=== PATIENT | female | born 2000 ===

== ENCOUNTER 2021-01-27 02:00 | Emergency (ER) | payer MEDICAID ==
[2021-01-27] MEDS ORDERED: Ketorolac 30 MG/ML SDV IM ONE (02:13)
--- NOTE | 2021-01-27 02:14 | EDM.PDOC ---
ED HPI GENERAL MEDICAL PROBLEM - General Chief Complaint: Lower Extremity Injury/Pain Stated Complaint: Left 2nd Toe Pain Time Seen by Provider: 01/27/21 02:08 Source of Information: Reports: Patient History Limitations: Reports: No Limitations - History of Present Illness INITIAL COMMENTS - FREE TEXT/NARRATIVE: Patient dropped a cement brick on her left 2nd toe about 3 hours ago. States that it hurts. Has not tried any OTC medications. Did try to ice it earlier. Complains of toe swelling, bruising, small cut to top aspect of toe. Onset: Today Duration: Getting Worse Location: Reports: Lower Extremity, Left Quality: Reports: Sharp Severity: Moderate Improves with: Reports: None Worsens with: Reports: Movement Associated Symptoms: Reports: No Other Symptoms Treatments RESHIPPING CLERK: Reports: Cold Therapy, Other (see below) (ice) Review of Systems - Review of Systems Review Of Systems: See Below Constitutional: Reports: No Symptoms Eyes: Reports: No Symptoms Ears: Reports: No Symptoms Nose: Reports: No Symptoms Mouth/Throat: Reports: No Symptoms Respiratory: Reports: No Symptoms Cardiovascular: Reports: No Symptoms GI/Abdominal: Reports: No Symptoms Genitourinary: Reports: No Symptoms Musculoskeletal: Reports: Foot Pain (left 2nd toe) Skin: Reports: No Symptoms Neurological: Reports: No Symptoms Psychiatric: Reports: No Symptoms ED EXAM, GENERAL - Physical Exam Exam: See Below Exam Limited By: No Limitations General Appearance: Alert, WD/WN, No Apparent Distress Eye Exam: Bilateral Eye: EOMI Peripheral Pulses: 2+: Posterior Tibial (L), Posterior Tibial (R), Dorsalis Pedis (L), Dorsalis Pedis (R) Extremities: No Pedal Edema, Normal Capillary Refill, Other (left second toe has ecchymosis, edema, dried small laceration not deep or wide enough to suture) Neurological: Alert, Oriented, CN II-XII Intact, Normal Cognition, Normal Gait, Normal Reflexes, No Motor/Sensory Deficits Psychiatric: Normal Affect, Normal Mood Skin Exam: Warm, Dry, Intact, Ecchymosis (left 2nd toe) Lymphatic: No Adenopathy Course - Orders/Labs/Meds Orders: Active Orders 24 hr Category Date Time Status Foot Comp Min 3V Lt [CR] Stat Exams 01/27/21 02:13 Taken Meds: Medications Discontinued Medications Generic Name Dose Route Start Last Admin Trade Name Freq PRN Reason Stop Dose Admin Ketorolac Tromethamine 30 mg 01/27/21 02:13 Ketorolac 30 Mg/Ml Sdv IM 01/27/21 02:14 ONETIME ONE Departure - Departure Time of Disposition: 03:15 Disposition: Home, Self-Care 01 Condition: Good Clinical Impression: Toe contusion Qualifiers: Encounter type: initial encounter Toe: lesser toe Damage to nail status: without damage Laterality: left Qualified Code(s): S90.122A - Contusion of left lesser toe(s) without damage to nail, initial encounter - Discharge Information *PRESCRIPTION DRUG MONITORING PROGRAM REVIEWED*: Not Applicable *COPY OF PRESCRIPTION DRUG MONITORING REPORT IN PATIENT JOZEF: Not Applicable Instructions: Foot Contusion, [id number] Forms: ED Department Discharge Additional Instructions: 1. No acute fracture identified 2. Stay well hydrated 3. Rest, elevate, ice your foot 4. Follow up with your regular doctor if not improving in 3-5 days - Problem List & Annotations (1) Toe contusion SNOMED Code(s): 56254012 Code(s): S90.129A - CONTUSION OF UNSP LESSER TOE(S) W/O DAMAGE TO NAIL, INIT Status: Acute Priority: Low Qualifiers: Encounter type: initial encounter Toe: lesser toe Damage to nail status: without damage Laterality: left Qualified Code(s): S90.122A - Contusion of left lesser toe(s) without damage to nail, initial encounter - Problem List Review Problem List Initiated/Reviewed/Updated: Yes - My Orders Last 24 Hours: My Active Orders 01/27/21 02:13 Foot Comp Min 3V Lt [CR] Stat - Assessment/Plan Last 24 Hours: My Active Orders 01/27/21 02:13 Foot Comp Min 3V Lt [CR] Stat Assessment:: toe contusion Plan: 1. No acute fracture identified 2. Stay well hydrated 3. Rest, elevate, ice your foot 4. Follow up with your regular doctor if not improving in 3-5 days
--- NOTE | 2021-01-27 08:58 | CR ---
[id number] RAD/RAD Foot Left 3V Min Exam: RAD Foot Left 3V Min Indication:INJURY Comparison: No prior imaging for comparison. Discussion/Impression: No acute fracture, AVN, or erosive changes. Joint spaces are well-preserved. Bone mineralization is normal. Slight valgus angulation of the 1st MTP articulation with lateral subluxation of the hallux sesamoids. Adam Murphy MD 01/27/21 0857 Thank you for allowing us to participate in the care of your patient.
== END 2021-01-27 03:15 | disposition home or self-care (01) ==
LOC: SUPCPDRO 02:00 → VM.ED 02:00
DX: S90.122A Contusion of left lesser toe(s) without damage to nail, initial encounter (principal); W20.8XXA Other cause of strike by thrown, projected or falling object, initial encounter
CPT/HCPCS: 73630-LT; 99283

== ENCOUNTER 2021-03-21 19:42 | Emergency (ER) | payer MEDICAID ==
--- NOTE | 2021-03-21 20:46 | EDM.PDOC ---
ED HPI GENERAL MEDICAL PROBLEM - General Chief Complaint: Back Pain or Injury Stated Complaint: PAINS Time Seen by Provider: 03/21/21 20:10 Source of Information: Reports: Patient History Limitations: Reports: No Limitations - History of Present Illness INITIAL COMMENTS - FREE TEXT/NARRATIVE: Lani is a 21 year old female who presents to ER with complaints of right lower back pain. States feels like back labor. Had a small period in February but only required one pad at that time. Has taken multiple tests at home, some have been positive, some negative. Last routine menses is unknown. She does admit to lifting heavy totes with rocks in them today but doesn't recall a specific event that caused pain. Pain waxes and wanes. No abdominal pain, no nausea or vomiting. Denies fever. No burning with urination, does have some hesitancy. Onset: Today, Gradual Duration: Hour(s): Location: Reports: Back Quality: Reports: Ache Severity: Moderate Associated Symptoms: Denies: Confusion, Chest Pain, Cough, Fever/Chills, Loss of Appetite, Nausea/Vomiting, Shortness of Breath - Related Data Allergies Allergy/AdvReac Type Severity Reaction Status Date / Time ketorolac [From Toradol] Allergy Itching Verified 03/21/21 20:42 morphine Allergy Itching Verified 03/21/21 20:42 Home Meds: Home Meds . [No Known Home Meds] 01/27/21 [History] Past Medical History Psychiatric History: Reports: Anxiety Social & Family History - Tobacco Use Tobacco Use Status *Q: Current Every Day Tobacco User - Alcohol Use Alcohol Use History: Yes - Recreational Drug Use Recreational Drug Type: Reports: Marijuana/Hashish ED ROS GENERAL - Review of Systems Review Of Systems: See Below Constitutional: Denies: Fever, Chills, Malaise, Weakness, Decreased Appetite HEENT: Reports: No Symptoms Respiratory: Denies: Shortness of Breath Cardiovascular: Denies: Chest Pain, Edema, Lightheadedness Endocrine: Denies: Fatigue GI/Abdominal: Denies: Abdominal Pain, Nausea, Vomiting : Reports: No Symptoms Musculoskeletal: Reports: Back Pain Skin: Reports: No Symptoms Neurological: Reports: No Symptoms ED EXAM,LOWER BACK PAIN/INJURY - Physical Exam Exam: See Below Exam Limited By: No Limitations General Appearance: Alert, WD/WN, No Apparent Distress Ears: Normal External Exam, Normal TMs Nose: Normal Inspection, Normal Mucosa, No Blood Throat/Mouth: Normal Inspection, Normal Oropharynx Head: Normocephalic Neck: Normal Inspection, Supple, Non-Tender Respiratory/Chest: No Respiratory Distress, Lungs Clear Cardiovascular: Regular Rate, Rhythm GI/Abdominal: Normal Bowel Sounds, Soft, Non-Tender (Female) Exam: Normal External Exam, Other (unable to appreciate any fundal height, no heart tones. Vaginal exam without any blood, cervix is closed.). No: Cervical Discharge, Vaginal Bleeding Extremities: Normal Inspection, No Pedal Edema Neurological: Alert, Normal Mood/Affect Psychiatric: Normal Affect Skin Exam: Warm, Dry Course - Orders/Labs/Meds Labs: Laboratory Tests 03/21/21 03/21/21 Range/Units 20:30 20:30 Urine Color Dark yellow H (YELLOW) Urine Appearance Slightly cloudy H (CLEAR) Urine pH 6.0 (5.0-8.0) Ur Specific [place] >=1.030 Urine Protein 30 H (NEGATIVE) mg/dL Urine Glucose (UA) Negative (NEGATIVE) mg/dL Urine Ketones Trace H (NEGATIVE) mg/dL Urine Occult Blood Negative (NEGATIVE) Urine Nitrite Negative (NEGATIVE) Urine Bilirubin Small H (NEGATIVE) Urine Urobilinogen 1.0 (0.2) EU/dL Ur Leukocyte Esterase Negative (NEGATIVE) Urine HCG, Qual Positive H (NEGATIVE) - Re-Assessments/Exams Free Text/Narrative Re-Assessment/Exam: 03/21/21 21:06 UA negative. Urine is positive. Unable to verify dates as had only spotting in February which would place her at 2 weeks gestation but does not recall prior menses date before that. Will need to follow up with Dr. Wolff tomorrow for ultrasound. Take tylenol for the back discomfort. Departure - Departure Time of Disposition: 21:08 Disposition: Home, Self-Care 01 Condition: Good Clinical Impression: Back pain, - Discharge Information *PRESCRIPTION DRUG MONITORING PROGRAM REVIEWED*: No *COPY OF PRESCRIPTION DRUG MONITORING REPORT IN PATIENT JOZEF: No Instructions: Acute Back Pain, Adult Referrals: Don Wolff MD [Primary Care Provider] - Forms: ED Department Discharge Additional Instructions: 1. Rest 2. Push fluids 3. Tylenol for discomfort 4. Call Dr. Wolff in am for follow up/ultrasound
== END 2021-03-21 21:15 | disposition home or self-care (01) ==
LOC: VM.ED 19:42
DX: O99.891 Other specified diseases and conditions complicating pregnancy (principal); M54.5 Low back pain; Z72.0 Tobacco use; Z88.5 Allergy status to narcotic agent
CPT/HCPCS: 81003; 81025; 99283